=== PATIENT | male | born 1975 | race African-American/Black ===

== ENCOUNTER 2018-02-18 09:47 | Emergency (ER) | payer BC, OTHER ==
[~2018-02-18] VITALS: Ht 185.4 cm; Wt 73.0 kg
--- NOTE | ~2018-02-18 | EKG ---
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: Mayank SANTILLAN : 1975 Requested By: Jackie Otto Order Number: [id number] MD: Rodney Sabillon Measurements Intervals [place] Rate: 71 P: 66 [place]: 130 QRS: 47 QRSD: 79 T: 33 QT: 374 QTc: 407 Interpretive Statements Sinus rhythm ST elev, probable normal early repol pattern No previous ECG available for comparison Electronically Signed On 02-19-2018 8:45:59 CDT by Rodney Sabillon [email or web address] <ELECTRONICALLY SIGNED> By: Rodney Sabillon MD, [facility] 02/19/18 0845 1003 1003 Rodney Sabillon MD, FACC /EPI
[2018-02-18 10:14] LABS: ABSOLUTE NEUTROPHILS 3.4 thou/uL (1.4-8.2); BASOPHILS 2.9 % (0.0-2.0); EOSINOPHILS 2.1 % (0.0-3.0); HEMOGLOBIN 14.3 gm/dL (14.0-18.0); LYMPHOCYTES 25.6 % (24.0-44.0); MCH 29.5 pg (26.0-34.0); MCV 86.8 fL (80.0-100.0); MONOCYTES 5.6 % (1.0-8.0); PLATELET COUNT 188 thou/uL (150-400); POLYS 63.8 % (36.0-66.0); RBC 4.84 mil/uL (4.50-6.00); RDW 13.8 % (10.5-14.5); WBC 5.3 thou/uL (4.0-11.0)
[2018-02-18 10:22] LABS: ANION GAP 8 mmol/L (7-16); BUN 16 mg/dL (7-18); CALCIUM 9.3 mg/dL (8.5-10.1); CHLORIDE 104 mmol/L (98-107); CO2 27 mmol/L (21-32); CREATININE 1.2 mg/dL (0.7-1.3); GLUCOSE 112 mg/dL (74-106); POTASSIUM 3.7 mmol/L (3.5-5.1); SODIUM 139 mmol/L (136-145)
[2018-02-18 10:30] LABS: ALBUMIN 3.8 g/dL (3.4-5.0); SGOT 19 U/L (15-37); SGPT 24 U/L (30-65); TOTAL BILIRUBIN 0.4 mg/dL (<0.1-1.0); TOTAL PROTEIN 7.4 g/dL (6.4-8.2); TROPONIN-I <0.06 ng/mL (<0.06)
[2018-02-18 11:25] LABS: URINE BILIRUBIN NEGATIVE (Negative); URINE BLOOD NEGATIVE (Negative); URINE CLARITY CLEAR; URINE COLOR YELLOW; URINE GLUCOSE-RANDOM* NEGATIVE (Negative); URINE KETONES TRACE (Negative); URINE LEUKOCYTES-REFLEX NEGATIVE (Negative); URINE NITRITE-REFLEX NEGATIVE (Negative); URINE PROTEIN (DIPSTICK) NEGATIVE (Negative); URINE UROBILINOGEN 0.2 E.U./dl (0.2-1.0)
[2018-02-18 12:55] VITALS: BP 119/78
== END 2018-02-18 13:52 | disposition home or self-care (01) ==
LOC: ER 09:47
PROVIDERS: Nurse Practitioner Family
DX: R55 Syncope and collapse (principal)

== ENCOUNTER 2020-01-17 04:08 | Emergency (ER) | payer OTHER ==
[~2020-01-17] VITALS: Ht 185.4 cm; Wt 74.4 kg
[2020-01-17 04:51] LABS: ABSOLUTE NEUTROPHILS 3.6 thou/uL (1.4-8.2); BASOPHILS 1.8 % (0.0-2.0); EOSINOPHILS 4.1 % (0.0-3.0); HEMATOCRIT 39.1 % (42.0-52.0); LYMPHOCYTES 33.2 % (24.0-44.0); MCH 29.9 pg (26.0-34.0); MCHC 33.3 g/dL (28.0-37.0); MCV 89.6 fL (80.0-100.0); MONOCYTES 5.5 % (1.0-8.0); PLATELET COUNT 210 thou/uL (150-400); POLYS 55.4 % (36.0-66.0); RBC 4.37 mil/uL (4.50-6.00); WBC 6.6 thou/uL (4.0-11.0)
[2020-01-17 05:00] LABS: ANION GAP 11 mmol/L (7-16); BUN 16 mg/dL (7-18); CALCIUM 8.4 mg/dL (8.5-10.1); CHLORIDE 105 mmol/L (98-107); CO2 25 mmol/L (21-32); CREATININE 0.9 mg/dL (0.7-1.3); GLUCOSE 92 mg/dL (74-106); SODIUM 141 mmol/L (136-145)
[2020-01-17 05:03] LABS: POTASSIUM 3.9 mmol/L (3.5-5.1)
[2020-01-17 05:10] LABS: ALBUMIN 3.7 g/dL (3.4-5.0); MAGNESIUM 2.1 mg/dL (1.8-2.4); SGOT 24 U/L (15-37); SGPT 29 U/L (30-65); TOTAL BILIRUBIN 0.4 mg/dL (0.2-1.0); TOTAL PROTEIN 7.1 g/dL (6.4-8.2); TROPONIN-I <0.06 ng/mL (<0.06)
[2020-01-17] MEDS ORDERED: ATIVAN0.5 M1 PO (06:01)
[2020-01-17 07:28] VITALS: BP 98/67
--- NOTE | 2020-01-18 08:13 | EKG ---
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 : 1975 Requested By: Asad Chavez Order Number: [id number] MD: Johnathan Sierra Measurements Intervals [place] Rate: 72 P: 63 [place]: 136 QRS: 55 QRSD: 74 T: 24 QT: 368 QTc: 403 Interpretive Statements Sinus rhythm Borderline low voltage, extremity leads Compared to ECG 02/18/2018 10:03:24 ST (T wave) deviation no longer present Electronically Signed On 01-18-2020 8:13:20 CDT by Johnathan Sierra [email or web address] <ELECTRONICALLY SIGNED> By: Johnathan Sierra MD, FACC 01/18/20 0813 0430 0430 Johnathan Sierra MD, [facility] /EPI
== END 2020-01-17 07:37 | disposition home or self-care (01) ==
LOC: ER 04:08
PROVIDERS: Emergency Medicine
DX: R07.89 Other chest pain (principal); F45.8 Other somatoform disorders; F41.9 Anxiety disorder, unspecified; F17.210 Nicotine dependence, cigarettes, uncomplicated

== ENCOUNTER 2020-01-24 14:42 | Emergency (ER) | payer OTHER ==
[~2020-01-24] VITALS: Ht 185.4 cm; Wt 74.4 kg
[~2020-01-24 14:42] MED LIST: ATIVAN0.5 M1 PO
[2020-01-24 16:18] LABS: HEMATOCRIT 41.6 % (42.0-52.0); HEMOGLOBIN 13.7 gm/dL (14.0-18.0); MCH 29.8 pg (26.0-34.0); MCHC 32.9 g/dL (28.0-37.0); MCV 90.8 fL (80.0-100.0); PLATELET COUNT 209 thou/uL (150-400); RBC 4.58 mil/uL (4.50-6.00); RDW 15.2 % (10.5-14.5); WBC 6.6 thou/uL (4.0-11.0)
[2020-01-24 16:27] LABS: ANION GAP 9 mmol/L (7-16); BUN 15 mg/dL (7-18); CALCIUM 8.9 mg/dL (8.5-10.1); CHLORIDE 103 mmol/L (98-107); CO2 25 mmol/L (21-32); GLUCOSE 99 mg/dL (74-106); POTASSIUM 4.1 mmol/L (3.5-5.1); SODIUM 137 mmol/L (136-145)
[2020-01-24 16:37] LABS: ALBUMIN 3.9 g/dL (3.4-5.0); SGOT 25 U/L (15-37); SGPT 29 U/L (30-65); TOTAL BILIRUBIN 0.3 mg/dL (0.2-1.0); TROPONIN-I <0.06 ng/mL (<0.06)
[2020-01-24 16:55] LABS: ABSOLUTE NEUTROPHILS 4.6 thou/uL (1.4-8.2)
[2020-01-24 16:56] LABS: TARGET CELLS FEW
[2020-01-24] MEDS ORDERED: NORCO 5-325 TA1 EAC2 PO (18:24)
[2020-01-24 18:39] VITALS: BP 117/79
--- NOTE | 2020-01-25 12:40 | EKG ---
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: : 1975 Requested By: Nevin Bedoya Order Number: [id number] MD: Johnathan Sierra Measurements Intervals [place] Rate: 95 P: 60 SD: 119 QRS: 38 QRSD: 75 T: 39 QT: 336 QTc: 423 Interpretive Statements Sinus rhythm Borderline short SD interval Probable left atrial enlargement Compared to ECG 01/17/2020 04:30:13 No significant changes Electronically Signed On 01-25-2020 12:40:05 CDT by Johnathan Sierra [email or web address] <ELECTRONICALLY SIGNED> By: Johnathan Sierra MD, FACC 01/25/20 1240 49 1450 Johnathan Sierra MD, FAC /EPI
== END 2020-01-24 18:40 | disposition home or self-care (01) ==
LOC: ER 14:42
PROVIDERS: Physician Assistant
DX: R07.89 Other chest pain (principal); Z79.899 Other long term (current) drug therapy

== ENCOUNTER 2020-01-31 03:39 | Emergency (ER) | payer OTHER ==
[~2020-01-31] VITALS: Ht 185.4 cm; Wt 74.4 kg
[~2020-01-31 03:39] MED LIST changes: +NORCO 5-325 TA1 EAC2 PO
[2020-01-31 04:33] LABS: EOSINOPHILS 3.6 % (0.0-3.0); HEMATOCRIT 39.8 % (42.0-52.0); HEMOGLOBIN 13.2 gm/dL (14.0-18.0); LYMPHOCYTES 21.3 % (24.0-44.0); MCHC 33.3 g/dL (28.0-37.0); MCV 90.3 fL (80.0-100.0); MONOCYTES 6.1 % (1.0-8.0); PLATELET COUNT 230 thou/uL (150-400); RDW 14.9 % (10.5-14.5); WBC 7.4 thou/uL (4.0-11.0)
[2020-01-31 04:43] LABS: URINE BILIRUBIN NEGATIVE (Negative); URINE BLOOD TRACE (Negative); URINE CLARITY CLEAR; URINE COLOR YELLOW; URINE GLUCOSE-RANDOM* NEGATIVE (Negative); URINE KETONES 1+ (Negative); URINE LEUKOCYTES-REFLEX NEGATIVE (Negative); URINE NITRITE-REFLEX NEGATIVE (Negative); URINE PROTEIN (DIPSTICK) NEGATIVE (Negative); URINE SPECIFIC GRAVITY <= 1.005 (1.005-1.035); URINE UROBILINOGEN 0.2 E.U./dl (0.2-1.0)
[2020-01-31 04:45] LABS: ANION GAP 15 mmol/L (7-16); BUN 13 mg/dL (7-18); CALCIUM 8.8 mg/dL (8.5-10.1); CHLORIDE 104 mmol/L (98-107); CO2 20 mmol/L (21-32); CREATININE 0.9 mg/dL (0.7-1.3); GLUCOSE 101 mg/dL (74-106); POTASSIUM 3.6 mmol/L (3.5-5.1); SODIUM 139 mmol/L (136-145)
[2020-01-31 04:55] LABS: TROPONIN-I <0.06 ng/mL (<0.06)
[2020-01-31] MEDS ORDERED: ATIVAN0.5 M1 PO (08:20)
[2020-01-31 08:30] VITALS: BP 119/73
--- NOTE | 2020-02-01 07:43 | EKG ---
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: [facility] : 1975 Requested By: Rajinder Hooker Order Number: [id number] MD: Rodney Sabillon Measurements Intervals [place] Rate: 73 P: -54 [place]: 129 QRS: 52 QRSD: 85 T: 29 QT: 397 QTc: 438 Interpretive Statements Sinus or ectopic atrial rhythm ST elev, probable normal early repol pattern Compared to ECG 01/24/2020 14:50:58 Ectopic atrial rhythm now present Electronically Signed On 02-01-2020 7:43:41 CDT by Rodney Sabillon [email or web address] <ELECTRONICALLY SIGNED> By: Rodney Sabillon MD, FACC 02/01/20 0743 0355 0355 Rodney Sabillon MD, [facility] /EPI
== END 2020-01-31 08:30 | disposition home or self-care (01) ==
LOC: ER 03:39
PROVIDERS: Emergency Medicine
DX: R31.9 Hematuria, unspecified (principal); R42 Dizziness and giddiness; R11.0 Nausea; Z79.899 Other long term (current) drug therapy

== ENCOUNTER 2020-02-20 06:25 | Emergency (ER) | payer OTHER ==
[~2020-02-20] VITALS: Ht 185.4 cm; Wt 76.2 kg
[2020-02-20 06:46] LABS: ABSOLUTE NEUTROPHILS 3.2 thou/uL (1.4-8.2); BASOPHILS 1.1 % (0.0-2.0); EOSINOPHILS 10.4 % (0.0-3.0); HEMATOCRIT 44.2 % (42.0-52.0); HEMOGLOBIN 14.5 gm/dL (14.0-18.0); LYMPHOCYTES 30.4 % (24.0-44.0); MCHC 32.7 g/dL (28.0-37.0); MCV 91.8 fL (80.0-100.0); MONOCYTES 7.7 % (1.0-8.0); PLATELET COUNT 259 thou/uL (150-400); POLYS 50.4 % (36.0-66.0); RBC 4.82 mil/uL (4.50-6.00); WBC 6.4 thou/uL (4.0-11.0)
[2020-02-20 07:06] LABS: ANION GAP 14 mmol/L (7-16); BUN 10 mg/dL (7-18); CALCIUM 9.4 mg/dL (8.5-10.1); CHLORIDE 105 mmol/L (98-107); CO2 23 mmol/L (21-32); CREATININE 1.3 mg/dL (0.7-1.3); GLUCOSE 89 mg/dL (74-106); POTASSIUM 4.2 mmol/L (3.5-5.1); SODIUM 142 mmol/L (136-145)
[2020-02-20 07:16] LABS: MAGNESIUM 2.3 mg/dL (1.8-2.4); SGOT 24 U/L (15-37); SGPT 21 U/L (30-65); TOTAL BILIRUBIN 0.5 mg/dL (0.2-1.0); TROPONIN-I <0.06 ng/mL (<0.06)
[2020-02-20] MEDS ORDERED: TOPROL XL25 MG PO (07:27)
[2020-02-20] MEDS ORDERED: ATIVAN0.5 M1 PO (07:27)
[2020-02-20 07:44] VITALS: BP 121/69
--- NOTE | 2020-02-22 07:42 | EKG ---
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1975 Requested By: Asad Chavez Order Number: [id number] MD: Rodney Sabillon Measurements Intervals [place] Rate: 84 P: 65 [place]: 139 QRS: 41 QRSD: 100 T: 53 QT: 360 QTc: 426 Interpretive Statements Sinus rhythm No significant abnormality Compared to ECG 01/31/2020 03:55:06 No significant changes found Electronically Signed On 02-22-2020 7:41:53 SALES COMPENSATION ANALYST by Rodney Sabillon [email or web address] <ELECTRONICALLY SIGNED> By: Rodney Sabillon MD, FACC 02/22/20 0741 9 9 Rodney Sabillon MD, [facility] /EPI
== END 2020-02-20 07:45 | disposition home or self-care (01) ==
LOC: ER 06:25
PROVIDERS: Emergency Medicine
DX: R07.89 Other chest pain (principal); F41.9 Anxiety disorder, unspecified; F45.8 Other somatoform disorders; M54.2 Cervicalgia; R68.2 Dry mouth, unspecified; R53.83 Other fatigue; R31.9 Hematuria, unspecified; R42 Dizziness and giddiness; Z79.899 Other long term (current) drug therapy

== ENCOUNTER 2020-02-26 03:38 | Emergency (ER) | payer OTHER ==
[~2020-02-26] VITALS: Ht 185.4 cm; Wt 75.3 kg
[~2020-02-26 03:38] MED LIST changes: +TOPROL XL25 MG PO
[2020-02-26 04:33] LABS: ABSOLUTE NEUTROPHILS 2.6 thou/uL (1.4-8.2); BASOPHILS 2.6 % (0.0-2.0); EOSINOPHILS 17.3 % (0.0-3.0); HEMATOCRIT 42.3 % (42.0-52.0); HEMOGLOBIN 14.1 gm/dL (14.0-18.0); LYMPHOCYTES 23.9 % (24.0-44.0); MCH 30.5 pg (26.0-34.0); MCHC 33.3 g/dL (28.0-37.0); MCV 91.7 fL (80.0-100.0); MONOCYTES 9.7 % (1.0-8.0); PLATELET COUNT 263 thou/uL (150-400); POLYS 46.5 % (36.0-66.0); RBC 4.61 mil/uL (4.50-6.00); RDW 14.4 % (10.5-14.5); WBC 5.5 thou/uL (4.0-11.0)
[2020-02-26 04:37] LABS: ANION GAP 12 mmol/L (7-16); BUN 13 mg/dL (7-18); CALCIUM 8.9 mg/dL (8.5-10.1); CHLORIDE 101 mmol/L (98-107); CO2 24 mmol/L (21-32); CREATININE 1.2 mg/dL (0.7-1.3); GLUCOSE 95 mg/dL (74-106); POTASSIUM 3.8 mmol/L (3.5-5.1); SODIUM 137 mmol/L (136-145)
[2020-02-26 04:46] LABS: TROPONIN-I <0.06 ng/mL (<0.06)
[2020-02-26] MEDS ORDERED: ATIVAN0.5 M1 PO (05:17)
[2020-02-26 05:23] VITALS: BP 121/58
--- NOTE | 2020-02-26 07:28 | EKG ---
[facility] [place] [address] ELECTROCARDIOGRAM REPORT Name: ADAN CARABALLO [facility] [id number] Admission: 02/26/20 Attend Phys: Discharge: 02/26/20 Date of : 73 Report #: [id number] THIS REPORT FOR: cc: CLARISA - Freda family physician/PCP CLARISA - Freda family physician/PCP Rodney Sabillon MD [facility] THIS REPORT FOR: //name// 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: [place] [id number] : 1975 Requested By: Rajinder Hooker Order Number: [id number] MD: Rodney Sabillon Measurements Intervals [place] Rate: 70 P: 65 [place]: 125 QRS: 56 QRSD: 83 T: 36 QT: 399 QTc: 431 Interpretive Statements Sinus rhythm No significant abnormality Compared to ECG 02/20/2020 06:30:00 No significant changes Electronically Signed On 02-26-2020 7:28:02 GEOMETRY TEACHER by Rodney Sabillon [email or web address] <ELECTRONICALLY SIGNED> By: Rodney Sabillon MD, FAC 02/26/20 0728 0354 0354 Rodney Sabillon MD, [facility] /EPI
== END 2020-02-26 05:29 | disposition home or self-care (01) ==
LOC: ER 03:38
PROVIDERS: Emergency Medicine
DX: R07.9 Chest pain, unspecified (principal); Z79.899 Other long term (current) drug therapy

== ENCOUNTER 2020-03-03 21:14 | Emergency (ER) | payer OTHER ==
[~2020-03-03] VITALS: Ht 185.4 cm; Wt 76.2 kg
[2020-03-03 21:39] LABS: ABSOLUTE NEUTROPHILS 3.6 thou/uL (1.4-8.2); BASOPHILS 0.9 % (0.0-2.0); EOSINOPHILS 9.1 % (0.0-3.0); HEMATOCRIT 42.2 % (42.0-52.0); HEMOGLOBIN 14.3 gm/dL (14.0-18.0); LYMPHOCYTES 19.7 % (24.0-44.0); MCH 30.4 pg (26.0-34.0); MCHC 33.9 g/dL (28.0-37.0); MCV 89.7 fL (80.0-100.0); MONOCYTES 8.1 % (1.0-8.0); PLATELET COUNT 240 thou/uL (150-400); POLYS 62.2 % (36.0-66.0); RBC 4.71 mil/uL (4.50-6.00); RDW 14.1 % (10.5-14.5); WBC 5.8 thou/uL (4.0-11.0)
[2020-03-03 22:00] LABS: ANION GAP 10 mmol/L (7-16); BUN 10 mg/dL (7-18); CALCIUM 9.2 mg/dL (8.5-10.1); CHLORIDE 101 mmol/L (98-107); CO2 27 mmol/L (21-32); CREATININE 1.3 mg/dL (0.7-1.3); GLUCOSE 95 mg/dL (74-106); POTASSIUM 3.4 mmol/L (3.5-5.1); SODIUM 138 mmol/L (136-145)
[2020-03-03 22:10] LABS: TROPONIN-I <0.06 ng/mL (<0.06)
[2020-03-04 01:12] LABS: AMP/METHAMP Negative (Negative); BARBITURATES Negative (Negative); BENZODIAZEPINES Negative (Negative); COCAINE Negative (Negative); METHADONE Negative (Negative); OPIATES Negative (Negative); PCP Negative (Negative)
[2020-03-04 01:14] VITALS: BP 108/56
--- NOTE | 2020-03-04 07:41 | EKG ---
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: [facility] : 1975 Requested By: Devang Reyez Order Number: [id number] MD: Johnathan Sierra Measurements Intervals [place] Rate: 83 P: 67 [place]: 118 QRS: 37 QRSD: 84 T: 41 QT: 374 QTc: 440 Interpretive Statements Sinus rhythm Borderline short [place] interval Compared to ECG 02/26/2020 03:54:45 No significant changes Electronically Signed On 03-04-2020 7:40:54 SOLO MUSICIAN by Johnathan Sierra [email or web address] <ELECTRONICALLY SIGNED> By: Johnathan Sierra MD, FACC 03/04/20 0740 21 21 Johnathan Sierra MD, [facility] /EPI
== END 2020-03-04 01:10 | disposition home or self-care (01) ==
LOC: ER 21:14
PROVIDERS: Nurse Practitioner
DX: R53.83 Other fatigue (principal); R07.89 Other chest pain; Z79.899 Other long term (current) drug therapy